=== PATIENT | male | born 1975 | race Caucasian/White ===

== ENCOUNTER 2017-10-08 07:15 | Day surgery (SDC) | payer OTHER ==
[2017-10-08] MEDS ORDERED: LIDOCAINE 1% 20 ML MDV ID STA (07:36)
[2017-10-08] MEDS ORDERED: SUBLIMAZE ONE (08:40)
[2017-10-08] MEDS ORDERED: TORADOL ONE (08:40)
[2017-10-08] MEDS ORDERED: VERSED ONE (08:40)
[2017-10-08] MEDS ORDERED: DIPRIVAN 20 ML VIAL IVP ONE (08:40)
[2017-10-08] MEDS ORDERED: ROMAZICON IVP ONE (08:40)
[2017-10-08] MEDS ORDERED: CORTISPORIN OTIC SUSP OT PRN (10:13)
[2017-10-08] MEDS ORDERED: NEO-SYNEPHRINE OT PRN (10:13)
[2017-10-08] MEDS ORDERED: ROMAZICON IVP STA (10:37)
--- NOTE | 2017-10-09 06:50 | OP ---
PREOPERATIVE DIAGNOSIS: IMPACTED CERUMEN MASTOID BOWL POSTOPERATIVE DIAGNOSIS: SAME OPERATION: EXAM UNDER ANESTHESIA AND REMOVAL AND CLEANING OUT MASTOID BOWL PROCEDURE: The patient was taken to surgery, placed on the table and general anesthesia was administered. The right ear was inspected using a microscope. A large amount of debris was removed from the external ear canal and mastoid bowl. Bleeding was controlled with Afrin impregnated cotton. Attention was turned to the left side, where again a large amount of wax and debris was removed from the mastoid bowl. Again, Neosynephrine was placed in the ear canal. Cortisporin drops were instilled and the patient was taken back to the recovery room in satisfactory condition. AJAY
[2017-10-10 14:46] VITALS: BP 106/56; TEMP 98.2
== END 2017-10-08 11:30 | disposition home or self-care (01) ==
LOC: SURG 07:15
PROVIDERS: ATTEND Otolaryngology
DX: H61.23 Impacted cerumen, bilateral (principal)